=== PATIENT | male | born 1975 | race Caucasian/White ===

== ENCOUNTER 2024-12-15 10:24 | Observation (INO) | payer OTHER, SELFPAY ==
[2024-12-15] VITALS (11 sets, daily range): BP systolic 126–175; BP diastolic 80–118; PULSE 88–120; RESP 16–20; TEMP 36.1–36.6; O2SAT 97–100; BMI 25.9
--- NOTE | ~2024-12-15 | XR_ITS ---
XR hand LT 2V 12/15/2024 10:47 INDICATION: Cat bite. Possible infection. PROCEDURE: 3 views left hand COMPARISON: No prior studies for comparison. FINDINGS: Fracture, dislocation or subluxation is not identified. The soft tissues appear within norm al limits. No foreign bodies are identified. IMPRESSION: 1: NO ACUTE BONE OR JOINT ABNORMALITY IDENTIFIED. Reviewed, dictated and finalized at location B.
--- OUTSIDE RECORDS SUMMARY | 2024-12-15 10:26 | XMS_ITS | Clinical Summary ---
Author Organization [facility] Care Team Providers Care Grease Refiner Operator Name Role Phone Unavailable Primary Care Provider Unavailabl e Social History Tobacco Use Types Packs/Day Years Used Date Smoking Tobacco: Never Assessed Sex and Gender Information Value Date Recorded Sex Assigned at Not on file Legal Sex Male 1:02 PM ORCHID HAND Gender Identity Not on file Sexual Orientation Not on file Plan of Treatment Health Maintenance Due Date Last Done Comments Hepatitis C Virus (HCV) Screening 1973 TdaP Immunization 1973 Hepatitis B Immunization (1 of 3 - 19+ 3-dose series) 1992 Colonoscopy 2018 Colorectal Cancer Screening 2018 Cologuard 2023 Immunochemical Fecal Occult Blood 2023 Pneumococcal Immunization (5 0+ years) (1 of 1 - PCV) 2023 Zoster Immunization (1 of 2) 2023 Influenza Immunization (#1) 2024 SARS-COV-2 Immunization ( season) 2024 06/08/2021, 09/22/2020, 08/14/2020 Respiratory Syncytial Virus (RSV) Immunization (Adult) (1 - 1-dose 75+ series) 2048 Meningococcal Immunization (ACWY) Aged Out No longer eligible b ased on patient's age to complete this topic Pneumococcal Immunization Combined Aged Out No longer eligible b ased on patient's age to complete this topic Rotavirus Immunization Aged Out No lo nger eligible based on patient's age to complete this topic
--- OUTSIDE RECORDS SUMMARY | 2024-12-15 10:26 | XMS_ITS | Clinical Summary ---
Author Organization [address] Address [address] [place] [phone] Care Team Providers Care Nutritionist Public Health Name Role Phone Unknown, Notinfile Primary Care Provider Unavail able Allergies Active Allergy Reactions Criticality Noted Date Comments Cat Dander Sneezing Low 12/15/2024 Medications No known medications Active Problems No known active problems Encounters Date Type Department Care Team Description 12/15/2024 10:15 AM CDT Office Visit [facility] at [address] [phone] Elisabeth Waldron PA Cat bite, initial encounter (Primary Dx); Elevated blood pressure reading from Last 3 Months Social History Tobacco Use Types Packs/Day Years Used Date Smoking Tobacco: Never Assessed Sex and Gender Information Value Date Recorded Sex Assigned at Not on file 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 Gender Identity Not on file Sexual Orientation Not on file Obstetrics History Last Filed Vital Signs Vital Sign Reading Time Taken Comments Blood Pressure 160/118 12/15/2024 9:52 AM CDT Pulse 122 12/15/2024 9:45 AM CDT Temperature 36.8 C (98.3 F) 12/15/2024 9:45 AM CDT Respiratory Rate 18 12/15/2024 9:45 AM CDT Oxygen Saturation 97% 12/15/2024 9:45 AM CDT Inhaled Oxygen Concentration - - Weight 80 kg (176 lb 4.8 oz) 12/15/2024 9:45 AM CDT Height 172.7 cm (5' 8) 12/15/2024 9:45 AM CDT Body Mass Index 26.81 12/15/2024 9:45 AM CDT Plan of Treatment Health Maintenance Due Date Last Done Comments Colon Cancer Screening-Colonoscopy 1973 Depression Screening 1973 Hepatitis C Screening 1973 Prostate Cancer Screening-PSA 1973 DTaP/Tdap/Td Vaccine (1 - Tdap) 1984 Hepatitis B Screening 1991 Regular Well Visit/Exam 18-64 1991 Zoster Vaccine (1 of 2) 2023 Covid-19 Vaccine ( - season) 2024 05/25/2023, 04/26/2022, 06/08/2021, Additional history exists Influenza Vaccine (Season Ended) 2025 05/25/2023 Pneumococcal vaccine <65 Aged Out No longer eligible based on patient's age to complete this topic Insurance [employer] Care Teams Nutritionist Public Health Relationship Specialty Start Date End Date Unknown, Notinfile PCP - General 12/15/24
--- OUTSIDE RECORDS SUMMARY | 2024-12-15 10:26 | XMS_ITS | Referral Summary ---
Author Organization [address] Address [address] [place] [phone] Care Team Providers Care Tree Care Foreman Name Role Phone Unknown, Notinfile Primary Care Provider Unavail able Encounters Date Type Department Care Team Description 12/15/2024 10:15 AM CDT Office Visit [facility] Medical [facility] Convenient Care at [address] [phone] Elisabeth Waldron PA Cat bite, initial encounter (Primary Dx); Elevated blood pressure reading from Last 3 Months Allergies Active Allergy Reactions Criticality Noted Date Comments Cat Dander Sneezing Low 12/15/2024 Medications No known medications Active Problems No known active problems Social History Tobacco Use Types Packs/Day Years Used Date Smoking Tobacco: Never Assessed Sex and Gender Information Value Date Recorded Sex Assigned at Not on file 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
--- OUTSIDE RECORDS SUMMARY | 2024-12-15 10:26 | XMS_ITS | Encounter Summary ---
Author Organization [facility] Healthcare Address [address] [place] [address] Care Team Providers Care Telecom Billing Analyst Name Role Phone Unknown, Notinfile Primary Care Provider Unavail able Reason for Visit * Reason Comments Animal Bite Cat bite, on y on his left hand, swollen hand red steaks going up his arms Encounter Details Date Type Department Care Team (Late st Contact Info) Description 12/15/2024 10:15 AM CDT Office Visit [facility] Medical [facility] Convenient Care at [address] [phone] Elisabeth Waldron PA [address] [place] [address] [address] [place] [address] Cat bite, initial encounter (Primary Dx); Elevated blood pressure reading Social History Tobacco Use Types Packs/Day Years Used Date Smoking Tobacco: Never Assessed Sex and Gender Information Value Date Recorded Sex Assigned at Not on file 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 Gender Identity Not on file Sexual Orientation Not on file documented as of this encounter Last Filed Vital Signs Vital Sign Reading [...] Mass Index 26.81 12/15/2024 9:45 AM CDT documented in this encounter Plan of Treatment Not on file documented as of this encounter Visit Diagnoses Diagnosis Cat bite, initial encounter- Primary Elevated blood pressure reading Elevated blood pressure reading without diagnosis of hypertension documented in this encounter Care Teams Telecom Billing Analyst Relationship Specialty Start Date End Date Unknown, Notinfile PCP - General 12/15/24 documented as of this encounter
--- NOTE | 2024-12-15 10:40 | ED.ANIMALBIT ---
HPI - Animal Bite General Chief Complaint: Animal Bite Stated Complaint: cat bite Time Seen by Provider: 12/15/24 10:25 History of Present Illness HPI narrative: 49-year-old otherwise healthy male presenting to the emergency department after a cat bite that got infected. Patient states he was bit by his daughters household CT 3 days ago. Animal is up-to-date on shots as far as he is aware. He knows that he got a single punctate wound to the ulnar surface of his left hand and now noticed streaking erythema going up his ulnar aspect into his elbow. Endorses feeling significant pain and swelling. No paresthesias, no fever, chills, systemic symptoms. Was otherwise in his normal state of health. Denies any traumatic injury otherwise. Is not up-to-date on tetanus. Related Data Allergies Allergy/AdvReac Type Severity Reaction Status Date / Time No Known Allergies Allergy Verified 12/15/24 11:35 Review of Systems Review of Systems: As [facility] Social History Social History Smoking status: Former smoker Alcohol intake: current Exam Narrative: GENERAL: [Well-appearing, well-nourished, and in no acute distress.] HEAD: [Normocephalic, atraumatic.] EYES: [PERRLA and EOMI.] ENT: Nares clear, no rhinorrhea or epistaxis. Mucous membranes moist. NECK: Supple. CHEST: [Clear to auscultation. No respiratory distress.] HEART: [Regular rate and rhythm]. No murmur heard. [Normal peripheral pulses.] ABDOMEN: [Soft, nondistended], [nontender], [No rigidity or guarding] EXTREMITIES: Single punctate wound localized to the ulnar side hand. Erythema and swelling to the ulnar aspect palmar surface of the left hand with streaking erythema going up towards the elbow. Range of motion is full, information operator strength 5/5, able to oppose each digit. Able to radial and ulnar deviate the wrist. SKIN: Warm, dry, no rash. NEURO: [No focal deficits]. Alert and oriented [x3.] PSYCH: [Normal mood and affect.] Course Vital Signs Vital signs: Vital Signs Temperature 36.6 C 12/15/24 10:30 Pulse Rate 112 H 12/15/24 10:30 Respiratory Rate 20 12/15/24 10:30 Blood Pressure 175/116 H 12/15/24 10:30 Pulse Oximetry 100 12/15/24 10:30 Oxygen Delivery Room Air 12/15/24 10:30 Temperature 36.6 C 12/15/24 10:30 Pulse Rate 95 12/15/24 12:01 Respiratory Rate 17 12/15/24 12:01 Blood Pressure 163/112 H 12/15/24 12:01 Pulse Oximetry 99 12/15/24 12:01 Oxygen Delivery Room Air 12/15/24 10:30 MDM - Animal Bite MDM Narrative Medical decision making narrative: 49-year-old male presenting to the emergency department after a cat bite to his left upper extremity. It was his daughter's household cat and up-to-date on shots as far as he is aware. Patient himself is not up-to-date on tetanus however. He presents with developing swelling and pain in his left hand radiating up towards his elbow. Examination reveals single punctate wound localized to the ulnar side hand. Erythema and swelling to the ulnar aspect palmar surface of the left hand with streaking erythema going up towards the elbow. Range of motion is full, information operator strength 5/5, able to oppose each digit. Able to radial and ulnar deviate the wrist. Considerations presently for cellulitis secondary to cat bite with likely suspect pasteurella infection or other oral, low risk factors and suspicion for MRSA. Patient started on a dose of Zosyn, laboratory studies obtained, blood cultures, inflammatory markers ordered. IV fluids started. X-rays of the hand ordered. Discussed with him IV versus oral antibiotic treatment and admission based on findings. Laboratory findings show a leukocytosis of 14.6 with an elevated CRP. Negative lactic acid. Electrolytes normal, renal and hepatic function normal. Tachycardia has improved with fluids. Discussed with him that I would like to admit him for IV antibiotics and patient was agreeable. Discussed the case with the hospitalist Dr. Gottlieb who accepted the patient to a medical-surgical bed. Admission orders placed, fluids ordered, antibiotic scheduled. Medical Records Attestation: I reviewed the patient's medical records. Lab Data Attestation: I reviewed the patient's lab results. 12/15/24 10:52 12/15/24 10:52 Labs: Lab Results 12/15/24 12/15/24 Range/Units 10:52 11:15 WBC 14.6 H (4.5-10.0) K/mm3 RBC 4.94 (4.6-6.20) M/mm3 Hgb 14.9 (14.0-18.0) g/dL Hct 44.7 (42.0-52.0) % MCV 90.5 (80-100) fl MCH 30.2 (26-34) pg MCHC 33.3 (32-36) g/dl RDW 13.8 (11.5-14.5) % Plt Count 345 (150-375) k/mm3 MPV 8.5 (7.4-10.4) fl Immature Gran % (Auto) 0.3 (0-0.5) % Neut % (Auto) 84.6 H (45.5-73.1) % Lymph % (Auto) 5.8 L (18.3-44.2) % [place] % (Auto) 8.9 H (2.6-8.5) % Eos % (Auto) 0.1 (0-4.4) % Baso % (Auto) 0.3 (0.2-1.2) % Lymph # (Auto) 0.85 L (0.9-3.2) K/mm3 [place] # (Auto) 1.3 H (0.1-0.6) K/mm3 Eos # (Auto) 0.0 (0-0.3) K/mm3 Baso # (Auto) 0.0 (0.0-0.1) K/mm3 Abs Immat Gran (auto) 0.05 H (0.00-0.031) K/mm3 Absolute Neuts (auto) 12.3 H (1.3-6.7) K/mm3 Absolute Nucleated RBC 0.000 (0.0-0.012) K/mm3 Nucleated RBC % 0.0 (0.0-0.2) % ESR 20 (0-20) mm/hr Sodium 136 L (137-145) mmol/L Potassium 4.0 (3.4-5.0) mmol/L Chloride 97 L (98-107) mmol/L Carbon Dioxide 25 (22-30) mmol/L Anion Gap 14 H (4-12) mmol/L BUN 10 (9-20) mg/dL Creatinine 0.74 (0.7-1.3) mg/dL Estim Creat Clear Calc 99 ml/min Estimated GFR > 60 (59 - ) Glucose 145 H (65-110) mg/dL Lactic Acid 1.5 (0.7-2.0) mmol/L Calcium 9.6 (8.4-10.2) mg/dL Total Bilirubin 0.8 (0.2-1.3) mg/dL AST 33 (17-59) U/L ALT 22 (6-50) U/L Alkaline Phosphatase 86 (38-126) U/L C-Reactive Protein 6.0 H (<1.0) mg/dL Total Protein 8.7 H (6.3-8.2) g/dL Albumin 4.9 (3.5-5.1) g/dL Imaging Data Attestation: I personally reviewed and interpreted this imaging study as follows: My impression: Impressions Hand X-Ray 12/15/24 10:50 IMPRESSION: 1: NO ACUTE BONE OR JOINT ABNORMALITY IDENTIFIED. Discharge Plan Discharge Clinical Impression: Cat bite of left hand with infection Patient Disposition: Still a Patient Condition: Stable Time of Disposition: 11:30
[2024-12-15 11:01] LABS: Basophils Percent Auto 0.3 % (0.2-1.2); Eosinophils Percent Auto 0.1 % (0-4.4); Hematocrit 44.7 % (42.0-52.0); Hemoglobin 14.9 g/dL (14.0-18.0); Immature Granulocyte Absolute 0.05 K/mm3 (0.00-0.031); Immature Granulocyte Percent A 0.3 % (0-0.5); Lymphocytes Absolute Auto 0.85 K/mm3 (0.9-3.2); Lymphocytes Percent Auto 5.8 % (18.3-44.2); Mean Corpuscular HGB Conc 33.3 g/dl (32-36); Mean Corpuscular Hemoglobin 30.2 pg (26-34); Mean Corpuscular Volume 90.5 fl (80-100); Mean Platelet Volume 8.5 fl (7.4-10.4); Monocytes Absolute Auto 1.3 K/mm3 (0.1-0.6); Monocytes Percent Auto 8.9 % (2.6-8.5); Neutrophils Absolute Auto 12.3 K/mm3 (1.3-6.7); Neutrophils Percent Auto 84.6 % (45.5-73.1); Platelet Count Result 345 k/mm3 (150-375); Red Blood Count 4.94 M/mm3 (4.6-6.20); Red Cell Distribution Width 13.8 % (11.5-14.5); White Blood Count 14.6 K/mm3 (4.5-10.0)
[2024-12-15] MEDS: KETOROLAC 30 MG/ML VIAL (*BKC) 15 MG IV PUSH (11:04)
[2024-12-15] MEDS: TETANUS,DIPHTHERIA,AC PERTUSSIS ADULT (0.5 ML) BOOSTRIX IM (11:07)
[2024-12-15] MEDS: LACTATED RINGERS 1,000 ML 999 ML IV CONT (11:09)
[2024-12-15 11:14] LABS: Alanine Aminotransferase 22 U/L (6-50); Albumin Level 4.9 g/dL (3.5-5.1); Alkaline Phosphatase 86 U/L (38-126); Anion Gap 14 mmol/L (4-12); Aspartate Amino Transferase 33 U/L (17-59); Bilirubin,Total 0.8 mg/dL (0.2-1.3); Blood Urea Nitrogen 10 mg/dL (9-20); Calcium 9.6 mg/dL (8.4-10.2); Carbon Dioxide 25 mmol/L (22-30); Chloride 97 mmol/L (98-107); Estimated CRCL calculation 99 ml/min; Estimated Glomerular Filt Rate > 60; Glucose 145 mg/dL (65-110); Sodium 136 mmol/L (137-145); Total Protein 8.7 g/dL (6.3-8.2)
[2024-12-15] MEDS: PIPERACILLIN/TAZ 4.5G/NS 100ML 4.5 GM/100 ML BAG IVPB ×2 (11:16→21:51)
--- OUTSIDE RECORDS SUMMARY | 2024-12-15 11:24 | XMS_ITS | Clinical Summary ---
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
--- OUTSIDE RECORDS SUMMARY | 2024-12-15 11:24 | XMS_ITS | Encounter Summary ---
Author Organization [facility] Healthcare Address [address] [place] [address] Care Team Providers Care Reporting Process Consultant Name Role Phone Unknown, Notinfile Primary Care Provider Unavail able Reason for Visit * Reason Comments Animal Bite Cat bite, on y on his left hand, swollen hand red steaks going up his arms Encounter Details Date Type Department Care Team (Late st Contact Info) Description 12/15/2024 10:15 AM CDT Office Visit [facility] Medical Group Convenient Care at [address] [phone] Elisabeth Waldron PA [address] [place] [address] [address] [place] [address] Cat bite, initial encounter (Primary Dx); Elevated blood pressure reading Social History Tobacco Use Types Packs/Day Years Used Date Smoking Tobacco: Never Assessed Sex and Gender Information Value Date Recorded Sex Assigned at Not on file 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
--- OUTSIDE RECORDS SUMMARY | 2024-12-15 11:24 | XMS_ITS | Referral Summary ---
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
--- OUTSIDE RECORDS SUMMARY | 2024-12-15 11:24 | XMS_ITS | Clinical Summary ---
Author Organization [address] Address [address] [place] [phone] Care Team Providers Care Closing Agent Name Role Phone Unknown, Notinfile Primary Care Provider Unavail able Allergies Active Allergy Reactions Criticality Noted Date Comments Cat Dander Sneezing Low 12/15/2024 Medications No known medications Active Problems No known active problems Encounters Date Type Department Care Team Description 12/15/2024 10:15 AM CDT Office Visit [facility] Medical Group Convenient Care at [address] [phone] Elisabeth Waldron PA Cat bite, initial encounter (Primary Dx); Elevated blood pressure reading from Last 3 Months Social History Tobacco Use Types Packs/Day Years Used Date Smoking Tobacco: Never Assessed Sex and Gender Information Value Date Recorded Sex Assigned at Not on file 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
[2024-12-15 11:34] LABS: Lactic Acid Reflex 1.5 mmol/L (0.7-2.0)
[2024-12-15 12:01] LABS: Erythrocyte Sedimentation Rate 20 mm/hr (0-20)
[2024-12-15] MEDS: LACTATED RINGERS 1,000 ML 120 ML IV CONT ×2 (13:48→22:36)
[2024-12-15] MEDS: HYDROcodone/acetaminophen (*CRX) 5-325 MG TABLET 1 TAB PO (13:48)
--- NOTE | 2024-12-15 14:51 | ADMGEN ---
This patient, Souleymane Pfeiffer, was admitted to [facility] Surg Room 312-01. Patient/family oriented to hospital policies and general routines including ID bracelet, bed and alarms, visiting hours, pain management, procedures, bathroom and other care routines, personal items, smoking policy, room service/diet, and visiting hours. Information on how to activate the Rapid Response Team has been discussed. Patient/Family are encouraged to report perceived risks to care and to ask questions if they do not understand what they are told or what they should do.
[2024-12-15] MEDS: hydrALAZINE HCL 20 MG/ML VIAL 10 MG IV PUSH (17:10)
--- NOTE | 2024-12-15 17:41 | P.HP_ITS ---
H&P: HPI History of Present Illness Date/Time: 12/15/24 17:41 Chief Complaint: Cat bite Narrative: 49-year-old male with no prior medical history who presents the hospital with a cat bite. He states that he was over at his daughter's house playing with her cat and the cat bit him on the left hand. Over the last few days pain and swelling has increased. As far as he knows the cat is up-to-date on its shots. Patient denies fevers chills nausea or vomiting. In the ED patient is tachycardic and hypertensive with no previous history. Lab work shows leukocytosis of 14.6 sodium of 136, chloride of 97, anion gap of 14 glucose of 145. X-ray of the hand shows no acute bone or joint abnormality. Review of Systems Review of Systems: 12 systems were reviewed and are negativ e except for as per HPI. [facility] Social History Social History Smoking packs per day: 1 Smoking cigarettes per day: 20.0 Years smoked: 27 Smoking pack-years: 27.00 Smoking status: Former smoker Smoking end date: 07/04/14 Alcohol intake: current Drinks per week: 15 Substance use: current Substance use type: marijuana Other substance usage details: occasional Last use: last week Do You Feel Safe in your Home?: Yes Lack of Transportation: No Lack of Food: Never True Current Housing: I Have Housing Concerned About Future Housing: No Difficulty Paying Gas/Electric Bills: No Difficulty Paying for Meds: No Currently Unemployed: No Education: Decline to Answer Difficulty w/ Childcare or Family Care: No Spiritual care concerns: No Meds Home Medications and Allergies Home Medications ?Medication ?Instructions ?Recorded ?Confirmed ?Type No Home Medications 12/15/24 12/15/24 History Allergies Allergy/AdvReac Type Severity Reaction Status Date / Time No Known Allergies Allergy Verified 12/15/24 13:42 Vital Signs Vital Signs - 24 hr 12/15/24 10:30 12/15/24 10:56 12/15/24 11:01 Temperature 98 F Pulse Rate 112 H 105 H 102 H Respiratory Rate 20 18 20 Blood Pressure 175/116 H 151/118 H 154/108 H Pulse Oximetry 100 99 99 Oxygen Delivery Room Air 12/15/24 11:16 12/15/24 11:31 12/15/24 11:46 Temperature Pulse Rate 91 98 94 Respiratory Rate 20 20 17 Blood Pressure 149/106 H 159/114 H 165/115 H Pulse Oximetry 97 98 99 Oxygen Delivery 12/15/24 12:01 12/15/24 12:25 12/15/24 16:00 Temperature 96.9 F L 97.3 F L Pulse Rate 95 88 106 H Respiratory Rate 17 16 18 Blood Pressure 163/112 H 167/109 H 169/106 H Pulse Oximetry 99 99 99 Oxygen Delivery Exam Narrative: General: well appearing, appears stated age. HEENT: normocephalic, atraumatic. Mucous membranes moist. EOMI, PERRLA, bilateral sclera anicteric, no conjunctival injection. Neck supple without JVD, lymphadenopathy, or bruit. Respiratory: clear to ascultation bilaterally. No rales/rhonic/wheezes. Cardiovascular: Regular rate and rhythm, normal S1-S2 upon ascultation. No murmurs, rubs, or clicks. PMI is nondisplaced, capillary refill less than 3 second. Abdomen: Soft, round, no pulsatile masses, nondistended and nontender. No rebound, no guarding. No CVA tenderness, no hepatosplenomegaly. Bowel sounds present to all four quadrants. No high pitch or tinkling sounds, resonant to percussion. Extremities: No cyanosis, clubbing, or edema present. Pulses are palpable 2/2. Left arm erythema bean, vascular streaking present Neuro: Alert and orientated x 4. PERRLA. Cranial nerves 2-12 intact without focal deficit. Skin: Warm, dry, and intact, without rash, erythema, or lesion. Psych: pleasant, cooperative, normal speech, normal affect, no hallucinations, no dysarthia H&P: Results Labs Labs: Short CBC 12/15/24 Range/Units 10:52 WBC 14.6 H (4.5-10.0) K/mm3 Hgb 14.9 (14.0-18.0) g/dL Hct 44.7 (42.0-52.0) % Plt Count 345 (150-375) k/mm3 BMP 12/15/24 10:52 Sodium 136 L Potassium 4.0 Chloride 97 L Carbon Dioxide 25 BUN 10 Creatinine 0.74 Glucose 145 H Calcium 9.6 Liver Function 12/15/24 Range/Units 10:52 Total Bilirubin 0.8 (0.2-1.3) mg/dL AST 33 (17-59) U/L ALT 22 (6-50) U/L Alkaline Phosphatase 86 (38-126) U/L Albumin 4.9 (3.5-5.1) g/dL Assessment and Plan Assessment and plan (1) Cat bite of left hand with infection: Code(s): S61.452A - Open bite of left hand, initial encounter; L08.9 - Local infection of the skin and subcutaneous tissue, unspecified; W55.01XA - Bitten by cat, initial encounter Status: Acute Assessment and Plan: Cellulitis vasculitis IV Zosyn Blood cultures pending Pain management (2) Tachycardia: Code(s): R00.0 - Tachycardia, unspecified Status: Acute Assessment and Plan: Likely due to infection EKG pending IVF (3) Hyperglycemia: Code(s): R73.9 - Hyperglycemia, unspecified Status: Acute Assessment and Plan: Hemoglobin A1c pending (4) Hypertension: Code(s): I10 - Essential (primary) hypertension Status: Acute Assessment and Plan: Hydralazine p.r.n. Follow-up with primary care provider Quality VTE Prophylaxis VTE prophylaxis: mechanical ordered and pharmacologic ordered Hospitalist MIPS Advance Care Plan I have confirmed that the patient's Advanced Care Plan is present, code status is documented, or surrogate decision maker is listed in patient medical record.: Yes Medication Reconciliation I have utilized all available resources to obtain, update and review the patients current medications (includes all prescriptions, OTC, herbals, cannabis, and nutritional supplements).: Yes
--- NOTE | 2024-12-15 19:17 | ECG_ITS ---
Test Date: 2024-12-16 08:10:52 Measurements Intervals [place] Rate: 93 P: 66 TX: 172 QRS: 81 QRSD: 99 T: 39 QT: 355 QTc: 443 Interpretive Statements SINUS RHYTHM BASELINE ARTIFACT- I, II, III, AVR, AVL, AVF, V1-V2 NORMAL ECG No previous ECG available for comparison Electronically Signed On 12-16-2024 10:58:49 CDT by To Thomas D.O.
[2024-12-16 00:55] VITALS: BP 145/86; PULSE 94; RESP 20; TEMP 36.7; O2SAT 98
[2024-12-16] MEDS: PIPERACILLIN/TAZ 4.5G/NS 100ML 4.5 GM/100 ML BAG IVPB (05:43)
[2024-12-16 06:00] VITALS: BP 153/90; PULSE 94; RESP 20; TEMP 36.6; O2SAT 98
[2024-12-16 06:43] LABS: Basophils Percent Auto 0.3 % (0.2-1.2); Eosinophils Absolute Auto 0.2 K/mm3 (0-0.3); Eosinophils Percent Auto 1.6 % (0-4.4); Hematocrit 40.7 % (42.0-52.0); Hemoglobin 13.5 g/dL (14.0-18.0); Immature Granulocyte Absolute 0.04 K/mm3 (0.00-0.031); Immature Granulocyte Percent A 0.4 % (0-0.5); Lymphocytes Absolute Auto 1.33 K/mm3 (0.9-3.2); Lymphocytes Percent Auto 14.3 % (18.3-44.2); Mean Corpuscular HGB Conc 33.2 g/dl (32-36); Mean Corpuscular Hemoglobin 30.5 pg (26-34); Mean Corpuscular Volume 91.9 fl (80-100); Mean Platelet Volume 8.8 fl (7.4-10.4); Monocytes Absolute Auto 0.9 K/mm3 (0.1-0.6); Monocytes Percent Auto 9.5 % (2.6-8.5); Neutrophils Absolute Auto 6.8 K/mm3 (1.3-6.7); Neutrophils Percent Auto 73.9 % (45.5-73.1); Platelet Count Result 312 k/mm3 (150-375); Red Blood Count 4.43 M/mm3 (4.6-6.20); White Blood Count 9.3 K/mm3 (4.5-10.0)
[2024-12-16] MEDS: LACTATED RINGERS 1,000 ML 120 ML IV CONT (06:49)
[2024-12-16 06:59] LABS: Anion Gap 6 mmol/L (4-12); Blood Urea Nitrogen 9 mg/dL (9-20); Calcium 8.6 mg/dL (8.4-10.2); Carbon Dioxide 26 mmol/L (22-30); Chloride 102 mmol/L (98-107); Estimated CRCL calculation 96 ml/min; Estimated Glomerular Filt Rate > 60; Glucose 102 mg/dL (65-110); Potassium 3.7 mmol/L (3.4-5.0); Sodium 134 mmol/L (137-145)
--- NOTE | 2024-12-16 07:32 | P.PNIM_ITS ---
Progress Note: A&P Assessment and Plan (1) Cat bite of left hand with infection: Code(s): S61.452A - Open bite of left hand, initial encounter; L08.9 - Local infection of the skin and subcutaneous tissue, unspecified; W55.01XA - Bitten by cat, initial encounter Status: Acute Assessment and Plan: Patient bitten by daughters household cat. Cat up to date on vaccinations. - blood cultures, NGTD - hand xr showed no acute bone or joint abnormality - started on Zosyn 12/15, transitioned to unasyn on 12/16 - received tetanus shot - Monitor vital signs, I&Os, neuro status and patient is a fall risk - Monitor serum electrolytes, CBC, cultures, WBC and temp curve (2) Elevated blood pressure reading: Code(s): R03.0 - Elevated blood-pressure reading, without diagnosis of hypertension Status: Acute Assessment and Plan: BP elevated on admission, ranging 130-160s systolic. Previously elevated in 2016. Not currently on any antihypertensives at home. Possible that elevated BP is partially related to pain Continue to monitor IV hydralazine ordered for BP > 180 systolic Subjective Date/time seen: 12/16/24 07:32 Interval history: 49 year old male with no significant past medical history presents to the hospital for worsening pain and swelling to the left hand following a cat bite. Review of Systems Review of Systems: All systems reviewed & are unremarkable except as noted in HPI and below Exam Narrative: AF General: well nourished, well-developed male in no acute respiratory distress who is nontoxic appearing, lying semi recumbent in bed. HEENT: Normocephalic. Atraumatic. Pupils equal round reactive to light. Extraocular movement intact. Sclera clear and anicteric. Nares patent. No oral lesions. Moist mucous membranes. Tongue is midline. Palate he symmetrically. No facial asymmetry. Neck: Neck was supple. No dominant adenopathy, thyromegaly or masses. 2+ carotid upstrokes without bruits. Chest: Lungs are clear to auscultation bilaterlly. No wheezes or crackles. CV: Heart was regular rate and rhythm. S1/S2. No murmurs, gallops, or rubs. Abd: Abdomen was soft. Nontender. Nondistended. Postive bowel sounds. No organomegaly or masses. Ext: No clubbing, cyanosis, or edema. 2+ DP pulses bilaterally. Neuro: Patient is alert and oriented x4. Strenth is 5/5 in both upper and lower extremities. Cranial nerves 2-12 are intact. Speech is clear. Psych: Normal nood and affect. Patient is pleasant and cooperative. Skin: Warm and dry. No rashes noted. Objective Data Vital Signs Vital Signs: Vital Signs - 24 hr 12/15/24 10:30 12/15/24 10:56 12/15/24 11:01 Temperature 98 F Pulse Rate 112 H 105 H 102 H Respiratory Rate 20 18 20 Blood Pressure 175/116 H 151/118 H 154/108 H Pulse Oximetry 100 99 99 Oxygen Delivery Room Air 12/15/24 11:16 12/15/24 11:31 12/15/24 11:46 Temperature Pulse Rate 91 98 94 Respiratory Rate 20 20 17 Blood Pressure 149/106 H 159/114 H 165/115 H Pulse Oximetry 97 98 99 Oxygen Delivery 12/15/24 12:01 12/15/24 12:25 12/15/24 16:00 Temperature 96.9 F L 97.3 F L Pulse Rate 95 88 106 H Respiratory Rate 17 16 18 Blood Pressure 163/112 H 167/109 H 169/106 H Pulse Oximetry 99 99 99 Oxygen Delivery 12/15/24 18:18 12/15/24 20:00 12/15/24 20:35 Temperature 97.5 F L 97.9 F Pulse Rate 120 H 110 H Respiratory Rate 18 20 Blood Pressure 126/83 138/80 Pulse Oximetry 98 98 Oxygen Delivery Room Air 12/16/24 00:55 Temperature 98.0 F Pulse Rate 94 Respiratory Rate 20 Blood Pressure 145/86 H Pulse Oximetry 98 Oxygen Delivery Intake/Output Intake/Output: Intake & Output 12/13/24 12/14/24 12/15/24 12/16/24 23:59 23:59 23:59 23:59 Intake Total 2440 1036 Balance 2440 1036 Meds/Results Medications: Active Medications Generic Name Dose Route Start Last Admin Trade Name Freq PRN Reason Stop Dose Admin Acetaminophen 650 mg 12/15/24 11:20 Acetaminophen 325 Mg Tablet PO Q4H PRN Mild Pain (1-3) or Fever Hydrocodone Bitart/Acetaminophen 1 tab 12/15/24 11:20 12/15/24 13:48 Hydrocodone/Acetaminophen (*Crx) 5-325 Mg Tablet PO 1 tab Q4H PRN Administration Pain Rated 4-6 Docusate Sodium 100 mg 12/15/24 13:30 12/15/24 17:09 Docusate Sodium 100 Mg Capsule PO Not Given DAILY [facility] Enoxaparin Sodium 40 mg 12/15/24 13:30 12/15/24 17:09 Enoxaparin 40 Mg/0.4 Ml Syringe SUB-Q Not Given DAILY [facility] Hydralazine HCl 10 mg 12/15/24 13:02 12/15/24 17:10 Hydralazine Hcl 20 Mg/Ml Vial IV PUSH 10 mg Q8H PRN Administration Blood Pressure - High Piperacillin Sod/Tazobactam Sod 4.5 gm in 100 mls @ 200 mls/hr 12/15/24 22:00 12/16/24 05:43 Zosyn 4.5 Gm/Ns 100 Ml IVPB 200 mls/hr Q8HR AFHSAN Administration Lactated Ringer's 1,000 mls @ 120 mls/hr 12/15/24 11:20 12/16/24 06:49 Lr - Lactated Ringers Iv IV CONT 120 mls/hr .Q8H20M AFSAHN Administration Morphine Sulfate 2 mg 12/15/24 11:20 Morphine Sulfate (*Crx) 2 Mg/Ml Inj IV PUSH Q2H PRN Pain Rated 7-10 Ondansetron HCl 4 mg 12/15/24 11:20 Ondansetron Inj 4 Mg/2 Ml Vial IV PUSH Q4H PRN Nausea Radiology Results: ITS Impressions Hand X-Ray 12/15/24 10:50 IMPRESSION: 1: NO ACUTE BONE OR JOINT ABNORMALITY IDENTIFIED. Labs Labs: Laboratory Results - last 24 hr 12/15/24 12/15/24 12/16/24 10:52 11:15 06:18 WBC 14.6 H 9.3 RBC 4.94 4.43 L Hgb 14.9 13.5 L Hct 44.7 40.7 L MCV 90.5 91.9 MCH 30.2 30.5 MCHC 33.3 33.2 RDW 13.8 14.0 Plt Count 345 312 MPV 8.5 8.8 Immature Gran % (Auto) 0.3 0.4 Neut % (Auto) 84.6 H 73.9 H Lymph % (Auto) 5.8 L 14.3 L [place] % (Auto) 8.9 H 9.5 H Eos % (Auto) 0.1 1.6 Baso % (Auto) 0.3 0.3 Lymph # (Auto) 0.85 L 1.33 [place] # (Auto) 1.3 H 0.9 H Eos # (Auto) 0.0 0.2 Baso # (Auto) 0.0 0.0 Abs Immat Gran (auto) 0.05 H 0.04 H Absolute Neuts (auto) 12.3 H 6.8 H Absolute Nucleated RBC 0.000 0.000 Nucleated RBC % 0.0 0.0 ESR 20 Sodium 136 L 134 L Potassium 4.0 3.7 Chloride 97 L 102 Carbon Dioxide 25 26 Anion Gap 14 H 6 BUN 10 9 Creatinine 0.74 0.76 Estim Creat Clear Calc 99 96 Estimated GFR > 60 > 60 Glucose 145 H 102 Lactic Acid 1.5 Calcium 9.6 8.6 Total Bilirubin 0.8 AST 33 ALT 22 Alkaline Phosphatase 86 C-Reactive Protein 6.0 H Total Protein 8.7 H Albumin 4.9
[2024-12-16 08:00] VITALS: BP 162/101; PULSE 98; RESP 18; TEMP 36.3; O2SAT 100; O2SAT 98
[2024-12-16 08:25] LABS: Hemoglobin A1C 5.5 % (<5.7)
[2024-12-16 09:12] VITALS: O2SAT 97
[2024-12-16] MEDS: AMPICILLIN SULB 3 GM/NS 100 ML 3 GM/100 ML VIAL IVPB (10:43)
[2024-12-16 12:00] VITALS: BP 156/116; PULSE 86; RESP 18; TEMP 36.6; O2SAT 100
--- NOTE | 2024-12-16 13:05 | P.DS_ITS ---
DS: Admitting Diagnosis Discharge Date 12/16/2024 Admitting Diagnosis cat bite of left hand with infection elevated blood pressure reading DS: Discharge Diagnosis Discharge Diagnosis (1) Cat bite of left hand with infection: Code(s): S61.452A - Open bite of left hand, initial encounter; L08.9 - Local infection of the skin and subcutaneous tissue, unspecified; W55.01XA - Bitten by cat, initial encounter Status: Acute (2) Elevated blood pressure reading: Code(s): R03.0 - Elevated blood-pressure reading, without diagnosis of hypertension Status: Acute DS: Summary Hospital Course Reason for hospitalization: cat bite of left hand with infection elevated blood pressure reading Hospital Course: 49 year old male with no significant past medical history presents to the hospital for worsening pain and swelling to the left hand following a household cat bite. Cat up to date on vaccinations. Patient received tetanus shot in the ED. Hand XR showed no acute bone or joint abnormality. Blood cultures obtained and show NGTD. Started on IV antibiotics for cat bite. Per patient his hand has significantly improved since admission. He was no longer endorsing pain, tenderness or decreased range of motion. WBC had returned to normal limits compared to admission. Prior to discharge discussed with patient that he could stay again for further IV therapy given continued mild swelling or monitor it in the outpatient if he feels comfortable. He states that he wishes to return home today as he is feeling much better and the swelling has drastically improved since admission. Had in depth conversation with patient that if pain, swelling or redness worsens he is to return to the hospital, he stated understanding. Also discussed with him that if his blood cultures return positive and a new antibiotic is required one will either be sent to his pharmacy or he may require returning to the hospital for IV treatment. He again stated understanding and wanted to proceed with outpatient management. During admission patient continued to have elevated blood pressures. He states that years ago he was told he had high blood pressure but was never placed on medication. He notes that he checks his blood pressure daily at home and it typically stays around 130/90. Patient was not placed on any antihypertensives during this admission. Advised patient to record his blood pressures at home for future PCP follow up. At time of discharge patient had no complaints denying chest pain, shortness of breath, palpitations, nausea/vomiting, abdominal pain. Patient discharged home with family in stable condition. He is a full primary care provider continue antibiotic as scheduled. Status at Discharge Functional status at discharge: independent ambulation Time Spent with Patient Time attestation: Total time spent providing and/or coordinating discharge services: Time spent: Greater than 30 minutes Exam Narrative: AF HR 98 RR 18 SpO2 100 BP 162/101 General: male in no acute respiratory distress who is nontoxic appearing, sitting up on side of bed HEENT: Normocephalic. Atraumatic. Extraocular movement intact. Sclera clear and anicteric. No facial asymmetry. Chest: Lungs are clear to auscultation bilaterally. No wheezes or crackles. CV: Heart was regular rate and rhythm. S1/S2. No murmurs, gallops, or rubs. Abd: Abdomen was soft. Nontender. Nondistended. Positive bowel sounds. Ext: Left hand with redness and mild swelling on the posterior aspect of the left hand wrapping around to the anterior lateral wrist and extending about a third of the way up the forearm. Remains well within the previously marked lines. No tenderness or warmth. No open wounds. No areas of fluctuance. ROM fully intact. Neuro: Patient is alert and oriented x4. Strength is 5/5 in both upper extremities. . Speech is clear. DS: Data Data Completed and Pending Completed studies during hospitalization: hand xr Labs on day of discharge: Labs from last 24 hours 12/16/24 06:18 WBC 9.3 RBC 4.43 L Hgb 13.5 L Hct 40.7 L MCV 91.9 MCH 30.5 MCHC 33.2 RDW 14.0 Plt Count 312 MPV 8.8 Immature Gran % (Auto) 0.4 Neut % (Auto) 73.9 H Lymph % (Auto) 14.3 L [place] % (Auto) 9.5 H Eos % (Auto) 1.6 Baso % (Auto) 0.3 Lymph # (Auto) 1.33 [place] # (Auto) 0.9 H Eos # (Auto) 0.2 Baso # (Auto) 0.0 Abs Immat Gran (auto) 0.04 H Absolute Neuts (auto) 6.8 H Absolute Nucleated RBC 0.000 Nucleated RBC % 0.0 Sodium 134 L Potassium 3.7 Chloride 102 Carbon Dioxide 26 Anion Gap 6 BUN 9 Creatinine 0.76 Estim Creat Clear Calc 96 Estimated GFR > 60 Glucose 102 Hemoglobin A1c 5.5 Calcium 8.6 Preliminary micro results at discharge 12/15/24 11:15 Blood Culture - Preliminary Blood 12/15/24 11:15 Blood Culture - Preliminary Blood Discharge Plan Discharge Attending physician on discharge: Gilmer Swan Consulting providers: William Martin; Shannon Watson Discharging Clinician: Shannon Watson Anticipated Discharge Date/Time: 12/16/24 12:55 Patient Disposition: Home Activity: as tolerated Diet: as tolerated Discharge Instructions: Discharge disposition: Patient reported to the hospital following a cat bite resulting in left hand pain and swelling Diagnosed with cellulitis Received tetanus shot during admission Take medications as prescribed Augmentin twice a day, course to be completed on 12/23 Attached is information on this medication If pain, swelling or redness worsens return to the hospital for further evaluation If blood cultures return positive and patient requires a new antibiotic or IV antibiotics you will receive a phone call Blood pressures have been slightly elevated Monitor blood pressures Record daily blood pressures for PCP follow up Take caution while standing, rising, or moving Change positions slowly taking a break between each position change If you standing feel dizzy sit back down and take a break Encouraged to continue with yearly vaccinations Return to the emergency department if he developed sudden shortness of breath, chest pain, nausea, vomiting, upset stomach or intractable diarrhea Return to the emergency department if you develop fever greater than 101.5 Follow-up with the primary care physician within 1-2 weeks Thank you for [facility] for your healthcare needs Patient Instructions: Antibiotic Form, Amoxicillin/Clavulanate Potassium (By mouth), Animal Bite (DC), Cellulitis (ED) Patient Language: Bol[place]ian Stand Alone Forms: General Discharge Information Follow-up/Referrals: Ignacia,MD Jessica [Primary Care Provider] - 1 Week William Martin MD [Physician] - 1 Week Discharge Medications: New amoxicillin-pot clavulanate 875-125 mg tablet 1 tablet PO Q12H Qty: 16 0RF Date of admission: 12/15/24 11:20 Primary Care Provider: IgnaciaJessica Admitting Provider: Sami Gottlieb Attending physician on admission: Sami Gottlieb Condition: Stable Hospitalist MIPS Heart Failure (Exclusion) Patient has history of Heart Transplant or Left Ventricular Assistive Device?: No IF YES, STOP HERE Heart Failure (Qualifier) Patient has current or prior documentation of LVEF less than or equal to 40%, or mod/servere depressed LVSF?: No IF NO, STOP HERE
--- NOTE | 2024-12-21 08:24 | PC.NURSE ---
Blood cx are negative.
== END 2024-12-16 13:33 | disposition home or self-care (01) ==
LOC: ANHED 11:23 → ANH3MEDSUR 11:56
PROVIDERS: Nurse Practitioner Gerontology; Admitting Provider General Practice; Emergency Provider Student in an Organized Health Care Education/Training Program; PCP Internal Medicine; Visit Provider General Practice
DX: S61.452A Open bite of left hand, initial encounter (principal); L03.114 Cellulitis of left upper limb; W55.01XA Bitten by cat, initial encounter; Z23 Encounter for immunization; R03.0 Elevated blood-pressure reading, without diagnosis of hypertension; R00.0 Tachycardia, unspecified; R73.9 Hyperglycemia, unspecified; Z87.891 Personal history of nicotine dependence
CPT/HCPCS: 36415; 73120; 80048; 80053; 83036; 83605; 85025; 85652; 86140; 87040; 90471; 90715; 93005; 96365; 96366; 96367; 96372; 96375; 99285; A9270; G0378; J0295; J0360; J1885; J2543; J7120